=== PATIENT | male | born 1950 | race Caucasian/White ===

== ENCOUNTER 2017-12-01 20:03 | Observation (INO) | payer MEDICARE ==
[2017-12-01 20:35] LABS: #Eosinphils 0.4 thou/uL (0.0-0.7); #Lymphocytes 1.3 thou/uL (1.20-3.40); #Monocytes 0.5 thou/uL (0.11-0.59); #Neutrophils 5.1 thou/uL (1.40-6.50); %Basophils 0.5 % (0.0-1.0); %Eosinophils 5.2 % (0.0-10.0); %Lymphocytes 17.5 % (21.0-51.0); %Monocytes 6.5 % (0.0-10.0); %Neutrophils 70.3 % (42.0-75.0); Hemoglobin 17.1 g/dL (14.0-18.0); Mean Corpuscular HGB CONC 35.1 g/dL (32.0-36.0); Mean Corpuscular Hemoglobin 31.8 pg (27.0-31.0); Mean Corpuscular Volume 90.7 fL (78.0-98.0); Mean Platelet Volume 8.8 fL (7.4-10.4); Platelet Count 201 thou/uL (130-400); RBC Distribution Width 14.1 % (11.5-14.5); Red Blood Cell (RBC) Count 5.37 mill/uL (4.70-6.10); White Blood Cell (WBC) Count 7.3 thou/uL (4.8-10.8)
--- NOTE | 2017-12-01 20:42 | RAD ---
CHEST TWO VIEWS: 12/01/17 HISTORY: Chest pain. FINDINGS: Cardiac silhouette and pulmonary vasculature are unremarkable. Mediastinum is midline. No confluent a ir space consolidation, pneumothorax or pleural fluid. IMPRESSION: No active cardiopulmonary abnormalities are demonstrated. POS: [facility]
[2017-12-01 20:56] LABS: ALT (SGPT) 24 U/L (8-55); AST (SGOT) 17 U/L (5-34); Albumin 4.3 g/dL (3.4-4.8); Alkaline Phosphatase 66 U/L (40-150); Anion Gap 14 mmol/L (10-20); BUN (Urea Nitrogen) 19 mg/dL (8.4-25.7); Bilirubin, Total 0.8 mg/dL (0.2-1.2); CK (CPK) 63 U/L (30-200); Calc. Creatinine Clearance 0 mL/min (70-130); Calcium 9.8 mg/dL (7.8-10.44); Carbon Dioxide 22 mmol/L (23-31); Chloride 105 mmol/L (98-107); Estimated GFR-MDRD 69; Globulin 2.9 g/dL (2.4-3.5); Glucose 132 mg/dL (80-115); Lipase 39 U/L (8-78); Potassium 3.9 mmol/L (3.5-5.1); Protein, Total 7.2 g/dL (5.8-8.1); Sodium 137 mmol/L (136-145)
[2017-12-01 20:59] LABS: CKMB 1.4 ng/mL (0-6.6); Troponin I Less than 0.010 ng/mL (< 0.028)
[2017-12-01] MEDS ORDERED: Nitroglycerin 2% Ointment 1 INCH/1 GM Packet ONE (21:30)
[2017-12-01] MEDS ORDERED: Ondansetron ODT 4 MG TAB PO PRN (22:37)
[2017-12-01] MEDS ORDERED: Bisacodyl 5 MG TAB PO PRN (22:37)
[2017-12-01] MEDS ORDERED: Acetaminophen 325 MG TAB PO PRN (22:37)
[2017-12-01] MEDS ORDERED: Senokot 8.6 MG TAB PO PRN (22:37)
[2017-12-01] MEDS ORDERED: Enoxaparin Sodium 40 MG/0.4 ML SYRINGE SC SCH (22:45)
[2017-12-02 00:36] LABS: Troponin I Less than 0.010 ng/mL (< 0.028)
[2017-12-02 01:14] VITALS: BMI 31.1
[2017-12-02] MEDS ORDERED: ALPRAZolam 0.25 MG TAB PO SCH (02:15)
[2017-12-02 02:21] LABS: #Eosinphils 0.3 thou/uL (0.0-0.7); #Lymphocytes 1.6 thou/uL (1.20-3.40); #Monocytes 0.6 thou/uL (0.11-0.59); #Neutrophils 4.4 thou/uL (1.40-6.50); %Basophils 0.6 % (0.0-1.0); %Eosinophils 4.4 % (0.0-10.0); %Lymphocytes 22.9 % (21.0-51.0); %Monocytes 8.2 % (0.0-10.0); Mean Corpuscular HGB CONC 34.9 g/dL (32.0-36.0); Mean Corpuscular Hemoglobin 31.6 pg (27.0-31.0); Mean Corpuscular Volume 90.5 fL (78.0-98.0); Mean Platelet Volume 8.9 fL (7.4-10.4); Platelet Count 175 thou/uL (130-400); RBC Distribution Width 14.2 % (11.5-14.5); Red Blood Cell (RBC) Count 5.06 mill/uL (4.70-6.10); White Blood Cell (WBC) Count 6.9 thou/uL (4.8-10.8)
[2017-12-02 02:44] LABS: Troponin I Less than 0.010 ng/mL (< 0.028)
[2017-12-02 04:00] LABS: Anion Gap 14 mmol/L (10-20); BUN (Urea Nitrogen) 22 mg/dL (8.4-25.7); Calc. Creatinine Clearance 95 mL/min (70-130); Calcium 9.5 mg/dL (7.8-10.44); Carbon Dioxide 23 mmol/L (23-31); Chloride 105 mmol/L (98-107); Estimated GFR-MDRD 80; Glucose 105 mg/dL (80-115); Potassium 4.1 mmol/L (3.5-5.1); Sodium 138 mmol/L (136-145)
--- NOTE | 2017-12-02 07:20 | HP ---
CHIEF COMPLAINT: Chest pain. HISTORY OF PRESENT ILLNESS: This is a 67-year-old white male with past medical history significant f or TX status post stents in 2013, presenting with a chief complaint of chest pain. Per the patient, chest pain started on the morning of admission. The patient states that the chest pain came on as in digestion and that is what he thought it was. It was located in the epigastric region and it felt li ke chest tightness and it really made him very uncomfortable; therefore it prompted the patient to co me to the emergency room. Upon further questioning, the patient states that he has had an emotional event and that his mother on Monday and since then he has been very worried and especially with the coming up tomorrow, which is 12/02/2017, patient has a lot of pressure and he is very anx ious, so he really thinks that all of these events is what is causing his chest discomfort and the pa yelena also states that he has extensive history of GERD, which he takes medications for. The patient states that 6 months ago, he had a nuclear stress test and he also had an echo done by Dr. Garcia . Patient also saw Dr. Garcia a week ago and patient was fine. The patient did not have any prob lems then. REVIEW OF SYSTEMS: At this point, all systems were reviewed and are negative. PAST MEDICAL HISTORY: Significant for GERD, hypertension, TX in 2013, status post stent. PAST SURGICAL HISTORY: Cardiac stent, hernia, Achilles tendon surgery, prostatectomy. SOCIAL HISTORY: Former tobacco smoker. The patient quit less than 10 years ago. Patient lives at [facility] with spouse. The patient denies any alcohol use or illicit drug use. FAMILY HISTORY: Significant for hypertension. ALLERGIES: Patient has allergy to SULFA. MEDICATIONS: The patient takes lisinopril 2.5 mg, Clopidogrel 75 mg, omeprazole 40 mg, carvedilol 3. 125 mg, simvastatin 40 mg, Pepcid 20 mg, aspirin 81 mg, Ginkgo Biloba 125 mg. PHYSICAL EXAMINATION: VITAL SIGNS: Blood pressure is 153/95, pulse 81, respiratory rate of 18, temperature 98.8, O2 sat 95 %. GENERAL APPEARANCE: Basically, the patient appears his stated age. The patient is sitting in bed, h aving a full conversation with me, he does not appear to be in acute distress. The patient seems maryam y worried. Patient states that he wants to be discharged in the morning, so that he can go to his mo ther's . HEENT: Normocephalic, atraumatic. Pupils are equally round and reactive to light. Extraocular move ments are intact. No scleral icterus. NECK: Supple. No JVDs. No tracheal deviations. LUNGS: Clear to auscultation bilaterally. No wheezing, no rales, no rhonchi. CARDIOVASCULAR: Positive S1, S2, regular rate and rhythm. No murmurs, no gallops or rubs appreciate d. ABDOMEN: Soft, nontender, nondistended. No pulsatile masses. EXTREMITIES: Upper extremity, 5/5 upper extremity strength, 5/5 lower extremity strength. Pulses ar e equal and bounding bilaterally. NEUROLOGIC: No neurologic deficits noted. SKIN: Warm, dry, and intact. PSYCHIATRIC: Normal affect. ED COURSE: The patient was given nitro and aspirin. X-RAY FINDINGS: Normal x-ray. LABORATORY FINDINGS: Pertinent positives and negatives. WBC 7.3, hemoglobin 17.1, hematocrit 48.7, platelets 201 and troponin is less than 0.010, CK-MB 1.4, lipase 39. ASSESSMENT AND PLAN: This is a 67-year-old male with a past medical history significant for myocardi al infarction in 2013, status post stent. The patient states that he still have 80% stenosis, which he has been told about. Now, the patient is being admitted for: 1. Chest pain to rule out acute coronary syndrome. Patient's chest pain is currently gastroesophage al reflux disease like in nature. The patient is being given Pepcid at this time. We also think nat t due to patient's recent events, the patient is stressed and anxious and this can be contributing to patient's chest discomfort. At this point, since the patient had a recent echo and recent stress te st, we are going to basically observe the patient and follow up the troponins. We will consult the c ardiologist television news reporter to examine the patient briefly and possibly discharge the patient in the a.m. We will give the patient low dose of Xanax just to calm the patient down since patient is very, very an xious. 2. History of myocardial infarction, status post stents. At this point, the patient is stable. Out patient workup in the past couple of months has been stable. We will monitor the patient on telemetr y. Possibly discharge the patient in the a.m. 3. Hypertension. Continue patient on home medications. 4. History of gastroesophageal reflux disease. The patient is currently on Pepcid. 5. Deep venous thrombosis and gastrointestinal prophylaxis.
[2017-12-02 07:58] VITALS: BP 152/78; TEMP 98.3
[2017-12-02] MEDS ORDERED: Famotidine 20 MG TAB PO SCH (09:00)
--- NOTE | 2017-12-02 17:08 | DIS ---
DATE OF ADMISSION: 12/01/2017 DATE OF DISCHARGE: 12/02/2017 DISCHARGE DIAGNOSES: 1. Chest pain. 2. History of coronary artery disease. 3. History of myocardial infarction. 4. Hypertension. 5. Gastroesophageal reflux disease. HISTORY: This patient is a 67-year-old male with a history of known coronary artery disease with aldo or MIs. He also has a standing diagnosis of reflux. Patient had a negative stress test and echocard iogram that was essentially unremarkable 6 months prior to presentation. He had also seen his cardio logist one week prior and was felt to be in reasonably good health. Unfortunately, this patient's mo ther had and her was pending on the day of his discharge. The patient reported t hat he had some symptoms that he initially felt were reflux related, primarily manifested as some dis comfort in his epigastrium and chest area. He felt, however, that it was important to get it checked out, so he presented via the emergency department. His initial troponins, EKG and exam were general ly unremarkable. HOSPITAL COURSE: The patient was placed in observation. He continued to have serial cardiac isoenzy mes which remained unremarkable. He had resolution of his symptoms. He had no ectopy on the monitor . Cardiology reviewed his outpatient workup and felt that no further workup or formal consultation w as indicated after our discussion. The patient was eager for discharge. His son encouraged him to c onsider something for anxiety, but he was reluctant and indicated he never really believed in using m edications for that sort of pain. Therefore, we went any further discussion about that. PHYSICAL EXAMINATION: VITAL SIGNS: On the day of discharge, temperature 98.3, pulse 74, respirations 20, BP is 152/78, 96% on room air. GENERAL: He is awake, alert, oriented, pleasant, cooperative. HEART: Regular rate and rhythm without murmur. LUNGS: Clear bilaterally. ABDOMEN: Soft, nontender, nondistended. EXTREMITIES: Warm and dry. DISPOSITION: The patient is discharged to home. DISCHARGE INSTRUCTIONS: He is to continue his usual heart healthy diet and his activity level is as tolerated. DISCHARGE MEDICATIONS: He will continue with Prilosec, lisinopril, Coreg, Zocor, aspirin, famotidine , tamsulosin, ginkgo biloba, Plavix. FOLLOWUP: He is to follow up with Dr. Daniel Sahu in 14 days. He can return to the emergency depar tment should they have any problems prior to that time.
== END 2017-12-02 08:57 | disposition home or self-care (01) ==
LOC: ERS 20:03 → 2SW 12-02 00:51
PROVIDERS: ADMIT Internal Medicine; ATTEND Internal Medicine
DX: R07.9 Chest pain, unspecified (principal); K21.9 Gastro-esophageal reflux disease without esophagitis; I10 Essential (primary) hypertension; I25.10 Atherosclerotic heart disease of native coronary artery without angina pectoris; I25.2 Old myocardial infarction; Z88.2 Allergy status to sulfonamides; Z95.5 Presence of coronary angioplasty implant and graft; Z79.82 Long term (current) use of aspirin; Z79.02 Long term (current) use of antithrombotics/antiplatelets; Z79.899 Other long term (current) drug therapy
CPT/HCPCS: 71046; 80048; 80053; 82550; 82553; 83690; 84484 ×3; 85025 ×2; 93005; 94760; 96372; 99285; G0378 ×2; 36415; J1650

== ENCOUNTER 2018-03-02 14:17 | Outpatient (CLI) | payer MEDICARE ==
[2018-03-02 15:45] LABS: #Eosinphils 0.2 thou/uL (0.0-0.7); #Lymphocytes 1.7 thou/uL (1.20-3.40); #Monocytes 0.5 thou/uL (0.11-0.59); #Neutrophils 4.4 thou/uL (1.40-6.50); %Basophils 0.2 % (0.0-1.0); %Eosinophils 2.6 % (0.0-10.0); %Lymphocytes 24.7 % (21.0-51.0); %Monocytes 7.3 % (0.0-10.0); %Neutrophils 65.2 % (42.0-75.0); Hemoglobin 15.3 g/dL (14.0-18.0); Mean Corpuscular HGB CONC 33.5 g/dL (32.0-36.0); Mean Corpuscular Hemoglobin 29.7 pg (27.0-31.0); Mean Corpuscular Volume 88.5 fL (78.0-98.0); Mean Platelet Volume 9.2 fL (7.4-10.4); Platelet Count 178 thou/uL (130-400); RBC Distribution Width 14.6 % (11.5-14.5); Red Blood Cell (RBC) Count 5.17 mill/uL (4.70-6.10); White Blood Cell (WBC) Count 6.8 thou/uL (4.8-10.8)
[2018-03-02 15:49] LABS: Bilirubin Small (Negative); Blood, Urine Negative (Negative); Clarity CLEAR (Clear); Glucose, Urine (Dipstick) Negative (Negative); Leukocyte Negative (Negative); Nitrite Negative (Negative); Protein, Urine (Dipstick) Negative (Neg-Trace); Specific Gravity, Urine 1.034 (1.002-1.036); pH, Urine 5.5 (5.0-9.0)
[2018-03-02 15:51] LABS: PTT 31.7 SEC (22.9-36.1); Prothrombin Time 12.8 SEC (12.0-14.7)
[2018-03-02 15:56] LABS: Bacteria/HPF None Seen HPF (None Seen); Hyaline Casts/LPF 0-3 HYALINE CAST LPF (0-3 Hyaline); Pathc Cast-AUWi Flag 0.14 (0-2.49); Squamous Epithelial None Seen HPF (0-3); WBC/HPF 0-3 HPF (0-3)
[2018-03-02 16:06] LABS: Anion Gap 12 mmol/L (10-20); BUN (Urea Nitrogen) 19 mg/dL (8.4-25.7); Calc. Creatinine Clearance 0 mL/min (70-130); Calcium 9.6 mg/dL (7.8-10.44); Carbon Dioxide 23 mmol/L (23-31); Chloride 106 mmol/L (98-107); Estimated GFR-MDRD 70; Glucose 99 mg/dL (80-115); Potassium 4.2 mmol/L (3.5-5.1); Sodium 137 mmol/L (136-145)
--- NOTE | 2018-03-02 16:11 | RAD ---
CHEST 2 VIEWS: Date: 03/02/18 COMPARISON: 12/01/17. HISTORY: Preoperative exam. FINDINGS: Normal cardiac silhouette. Pulmonary vessels and hilum are normal. No mass. No consolidation. No pneu mothorax or acute osseous abnormalities. IMPRESSION: No acute cardiopulmonary process. POS: [facility]
== END 2018-03-02 14:18 | disposition home or self-care (01) ==
LOC: LABBT 14:17
PROVIDERS: ATTEND Orthopaedic Surgery
DX: Z01.818 Encounter for other preprocedural examination (principal); M16.11 Unilateral primary osteoarthritis, right hip
CPT/HCPCS: 71046; 80048; 81001; 85025; 85610; 85730; 86850; 86900; 86901; 87081; 93005; 93010

== ENCOUNTER 2018-03-02 15:00 | Inpatient (IN) | payer MEDICARE ==
[2018-03-02 14:26] VITALS: BMI 29.7
[2018-03-06] MEDS ORDERED: CEFAZOLIN 2 GM/50 ML BAG ONE (10:05)
[2018-03-06] MEDS ORDERED: Tranexamic Acid 1,000 MG/10 ML VIAL ONE (10:05)
[2018-03-06] MEDS ORDERED: Sodium Chloride 0.9% 100 ML ONE (10:05)
[2018-03-06] MEDS ORDERED: Vancomycin HCl 1.5 GM in Sodium Chloride 0.9% 250 ML 300 ML IVPB SCH (10:15)
[2018-03-06] MEDS ORDERED: Midazolam HCl 2 mg/2 ml Vial ONE ×2 (10:50→10:51)
[2018-03-06] MEDS ORDERED: Fentanyl 100 MCG/2 ML VIAL ONE ×6 (10:50→13:30)
[2018-03-06] MEDS ORDERED: diphenhydrAMINE 25 MG CAP PO PRN ×2 (10:53→12:00)
[2018-03-06] MEDS ORDERED: Zolpidem Tartrate 5 MG TAB PO PRN ×2 (10:53→12:00)
[2018-03-06] MEDS ORDERED: traMADol HCl 50 MG TAB PO PRN ×2 (10:53→12:00)
[2018-03-06] MEDS ORDERED: Fentanyl 100 MCG/2 ML VIAL SLOW IVP PRN ×2 (10:53)
[2018-03-06] MEDS ORDERED: Promethazine HCl 25 MG/ML VIAL IM PRN ×3 (10:53→13:45)
[2018-03-06] MEDS ORDERED: HYDROcodone/Acetaminophen 10/325 mg Tablet PO PRN ×2 (10:53)
[2018-03-06] MEDS ORDERED: Ondansetron PF 4 MG/2 ML Vial IVP PRN ×2 (10:53→12:00)
[2018-03-06] MEDS ORDERED: Acetaminophen 325 MG TAB PO PRN (10:53)
[2018-03-06] MEDS ORDERED: CEFAZOLIN/Water 2 GM/20 ML SYRINGE SLOW IVP SCH (11:00)
[2018-03-06] MEDS ORDERED: Bupivacaine/Epinephrine 0.25% 30 ML VIAL ONE (11:17)
[2018-03-06] MEDS ORDERED: diphenhydrAMINE 50 MG/ML VIAL IVP PRN (12:00)
[2018-03-06] MEDS ORDERED: Hydrocerin (Eucerin) Cream 120 gm Jar TOP PRN (12:00)
[2018-03-06] MEDS ORDERED: HYDROcodone/Acetaminophen 5/325 mg Tablet PO PRN (12:00)
[2018-03-06] MEDS ORDERED: Naloxone HCl 0.4 mg/ml Vial IVP PRN (12:00)
[2018-03-06] MEDS ORDERED: Ketorolac Tromethamine 30 MG/ML VIAL IVP SCH ×2 (12:00→14:00)
[2018-03-06] MEDS ORDERED: Bupivacaine 0.25% 10 ML VIAL EPIDURAL PRN (12:00)
[2018-03-06] MEDS ORDERED: Naloxone HCl 0.4 mg/ml Vial IV PRN (12:00)
[2018-03-06] MEDS ORDERED: Fentanyl/Bupivacaine 100 ML EPIDURAL SCH (12:00)
[2018-03-06] MEDS ORDERED: Promethazine HCl 25 MG SUPP PR PRN (12:00)
[2018-03-06] MEDS ORDERED: diphenhydrAMINE 50 MG/ML VIAL IM PRN (12:00)
[2018-03-06] MEDS ORDERED: Bupivacaine 0.5% 10 ML VIAL ONE (12:52)
[2018-03-06] MEDS ORDERED: Ondansetron HCl/PF 4 MG/2 ML Vial IVP PRN (13:45)
[2018-03-06] MEDS ORDERED: Promethazine HCl 25 MG/ML VIAL SLOW IVP PRN (13:45)
--- NOTE | 2018-03-06 14:08 | RAD ---
RADIOGRAPH RIGHT HIP 2 VIEWS: Date: 03/06/18 HISTORY: 67-year-old male with right hip pain, status post surgery. COMPARISON: None. FINDINGS: Metallic acetabular cup in place, articulating with femoral head and neck prosthesis component with s tem that reaches junction between proximal and middle thirds of femoral diaphysis. IMPRESSION: Status post total right hip replacement arthroplasty. POS: [facility]
[2018-03-06] MEDS ORDERED: Ketorolac Tromethamine 30 MG/ML VIAL ONE (14:21)
[2018-03-06] MEDS ORDERED: Lidocaine 1% PF 5 ML VIAL ONE (16:55)
[2018-03-06] MEDS ORDERED: Glycopyrrolate 0.2 MG/ML 5 ML SYRINGE ONE (16:55)
[2018-03-06] MEDS ORDERED: Rocuronium Bromide 10 MG/ML (10ML VIAL) ONE (16:55)
[2018-03-06] MEDS ORDERED: PROPOFOL 200 MG/20 ML VIAL ONE (16:55)
[2018-03-06] MEDS: Sodium Chloride 0.9% 1,000 ML IV SCH ×2 (17:27→17:52)
[2018-03-06] MEDS: CEFAZOLIN 2 GM/50 ML-DEXTROSE 2 GM in Premix Bag 1 BAG IVPB SCH (17:51)
[2018-03-06] MEDS: Aspirin 81 mg Enteric Coated Tablet PO SCH (19:30)
[2018-03-06] MEDS: Famotidine 20 MG TAB PO SCH (19:31)
[2018-03-06] MEDS: Carvedilol 3.125 MG TAB PO SCH (19:31)
[2018-03-06] MEDS: Ferrous Gluconate 324 MG TAB PO SCH (19:31)
[2018-03-06] MEDS: Senokot S 8.6-50 MG TAB PO SCH (19:31)
[2018-03-06] MEDS: Atorvastatin Calcium 20 MG TAB PO SCH (19:31)
[2018-03-06] MEDS: Ketorolac Tromethamine 30 MG/ML VIAL IVP SCH (19:32)
--- NOTE | 2018-03-06 20:50 | OP ---
DATE OF PROCEDURE: 03/06/2018 PREOPERATIVE DIAGNOSIS: Degenerative joint disease, right hip. POSTOPERATIVE DIAGNOSIS: Degenerative joint disease, right hip. PROCEDURE PERFORMED: Right total hip arthroplasty using a Golden Accolade size 2.5 stem with a 54 mm Tritanium cup, +2.5 ceramic head. COUNTING MACHINE OPERATOR: Tobi. BLOOD LOSS: 200. SPECIMENS: None. DRAINS: None. COMPLICATIONS: None. PROCEDURE IN DETAIL: After informed consent was obtained in the preoperative holding area, the patient was taken to the operative suite where general anesthesia was induced. The patient was then positioned in the lateral decubitus position. The hip was then prepped and draped in usual sterile fashion. The patient received preoperative antibiotics. Prior to incision, time-out was called and all members of the surgical team agreed upon site, surgeon, and patient. After this, a longitudinal incision was made directly over the trochanter, noted by palpation extending 2 fingerbreadths above and below the trochanter. The deeper subcutaneous layer was undermined with Bovie electrocautery. The iliotibial band was encountered and incised sharply and the plane below this was developed bluntly. A Charnley retractor was placed to hold this opened. The lateral aspect of the trochanter and the abductor muscles were encountered and then reflected anteriorly off the trochanter using Bovie electrocautery. Once this was completed, the anterior capsule was then encountered and identified and copious capsulotomy was carried out, exposing the femoral neck and head. Dislocation maneuver was then performed and an in situ provisional neck cut was then made using the oscillating saw. Attention was then turned to acetabular preparation and sequential reaming was carried out up to the appropriate diameter. A trial was then malleted into place with good firm resistance and no pullout. The permanent acetabular shell was then malleted squarely into place, as was the appropriate liner. Once completed, the wound was copiously irrigated and attention was then turned to femoral preparation. Flexion and external rotation were performed of the exposed thigh and femoral elevators were then placed at the proximal aspect of the wound. Canal finder was used to establish the length of the canal and sequential reaming was carried out, followed by broaching. Once the appropriate stability was established with the trial broaches with flexion, extension and rotational stability, we did trial with neutral and 2 mm offset incremental necks. Once the appropriate size was decided upon, with good stability noted with flexion, extension, internal and external rotation and shuck being negative, we removed the femoral trial broach and malletted into place the permanent prosthesis with good firm fit, which was also stable to rotation. Again, the hip felt very stable to flexion, extension, internal and external rotation. Leg lengths appeared near anatomic clinically and we were quite happy with prosthesis placement. Copious irrigation was then carried out through the entirety of the wound. Primary closure of the abductors was accomplished with interrupted #2 Vicryl [id number] stitches and the IT band was then closed with interrupted #2 Vicryl, oversewn with a #2 running barbed Quill stitch. Subcutaneous fascia was closed with running barbed Quill stitch and a subcuticular Monocryl barbed Quill stitch was used for skin closure and augmented with skin cement. A sterile dressing was applied. The procedure was terminated without any complication. All counts were correct. The patient was awakened in the operative suite and taken to the recovery room in stable condition. Job ID: [id number]
[2018-03-06] MEDS: Fentanyl/Bupivacaine 100 ML EPIDURAL SCH (21:23)
[2018-03-07] MEDS: CEFAZOLIN 2 GM/50 ML-DEXTROSE 2 GM in Premix Bag 1 BAG IVPB SCH (01:57)
[2018-03-07] MEDS: Ketorolac Tromethamine 30 MG/ML VIAL IVP SCH ×4 (01:57→20:05)
[2018-03-07] MEDS: HYDROcodone/Acetaminophen 5/325 mg Tablet PO PRN ×2 (04:24→09:58)
[2018-03-07] MEDS: traMADol HCl 50 MG TAB PO PRN ×2 (05:53→12:16)
[2018-03-07] MEDS: Sodium Chloride 0.9% 1,000 ML IV SCH ×2 (05:55→07:29)
[2018-03-07 06:29] LABS: Hemoglobin 13.2 g/dL (14.0-18.0); Mean Corpuscular HGB CONC 33.6 g/dL (32.0-36.0); Mean Corpuscular Hemoglobin 30.1 pg (27.0-31.0); Mean Corpuscular Volume 89.5 fL (78.0-98.0); Mean Platelet Volume 8.7 fL (7.4-10.4); Platelet Count 140 thou/uL (130-400); RBC Distribution Width 14.5 % (11.5-14.5); Red Blood Cell (RBC) Count 4.38 mill/uL (4.70-6.10); White Blood Cell (WBC) Count 7.1 thou/uL (4.8-10.8)
[2018-03-07] MEDS: Lisinopril 2.5 MG TAB PO SCH (07:53)
[2018-03-07] MEDS: Multivitamin W/ Minerals 1 TAB PO SCH (07:53)
[2018-03-07] MEDS: Ferrous Gluconate 324 MG TAB PO SCH ×2 (07:54→20:07)
[2018-03-07] MEDS: Senokot S 8.6-50 MG TAB PO SCH ×2 (07:55→20:06)
[2018-03-07] MEDS: Aspirin 81 mg Enteric Coated Tablet PO SCH ×2 (07:55→20:06)
[2018-03-07] MEDS: Carvedilol 3.125 MG TAB PO SCH ×2 (07:56→20:07)
[2018-03-07] MEDS: Fentanyl/Bupivacaine 100 ML EPIDURAL SCH ×2 (08:56→20:22)
[2018-03-07] MEDS: Atorvastatin Calcium 20 MG TAB PO SCH (20:07)
[2018-03-07] MEDS: Famotidine 20 MG TAB PO SCH (20:07)
--- NOTE | 2018-03-07 23:29 | PRG ---
DATE OF SERVICE: 03/07/2018 PRIMARY CARE PHYSICIAN: Dr. Sahu. SUBJECTIVE: The patient is a 67-year-old male who underwent right total hip arthroplasty. Hospitalist Team was consulted for medical management. The patient denies any chest pain, shortness of breath, palpitations, nausea, vomiting, diarrhea, fever, or chills. He ambulated today with Physical Therapy. He denies any leg swelling or focal deficit. PHYSICAL EXAMINATION: VITAL SIGNS: Temperature 99.0, pulse rate of 83, respirations of 16, O2 saturation 94% on room air, blood pressure of 111/71. GENERAL: A 67-year-old man, in no apparent distress. LUNGS: Clear to auscultation bilaterally. HEART: S1 and S2 are present. Regular rate and rhythm. No rubs or gallops appreciated. ABDOMEN: Soft. Bowel sounds present. EXTREMITIES: No edema or calf tenderness. NEUROLOGIC: Grossly nonfocal. Moves all 4 extremities. PSYCHIATRY: Alert, awake, and oriented x3. LAB FINDINGS: WBC 7.1 with hemoglobin 13.2, hematocrit 39.3, platelets of 140. Recent BUN was 19, creatinine 1.05. X-ray of the hip post surgery was within normal limits. Chest x-ray by my review from last week was negative for acute findings. IMPRESSION: 1. Status post right hip arthroplasty. 2. Coronary artery disease, status post myocardial infarction in the past. He is currently on aspirin. Plavix is on hold. We will continue carvedilol, ERVIN inhibitor with statins. 3. Gastroesophageal reflux disease, we will continue proton pump inhibitors. 4. Hypertension, plan as discussed above. 5. Chronic kidney disease stage 2. 6. Hyperlipidemia, we will continue statins. 7. Former smoker. Plan of care was discussed with the patient in detail. He stated understanding. Job ID: [id number]
[2018-03-08] MEDS: Ketorolac Tromethamine 30 MG/ML VIAL IVP SCH ×2 (02:15→08:14)
[2018-03-08] MEDS: Sodium Chloride 0.9% 1,000 ML IV SCH ×2 (02:16→16:19)
[2018-03-08 06:42] LABS: #Eosinphils 0.2 thou/uL (0.0-0.7); #Lymphocytes 1.1 thou/uL (1.20-3.40); #Monocytes 0.8 thou/uL (0.11-0.59); #Neutrophils 6.3 thou/uL (1.40-6.50); %Basophils 0.1 % (0.0-1.0); %Eosinophils 2.4 % (0.0-10.0); %Lymphocytes 13.3 % (21.0-51.0); %Monocytes 9.6 % (0.0-10.0); %Neutrophils 74.6 % (42.0-75.0); Hemoglobin 14.5 g/dL (14.0-18.0); Mean Corpuscular HGB CONC 34.5 g/dL (32.0-36.0); Mean Corpuscular Hemoglobin 30.9 pg (27.0-31.0); Mean Corpuscular Volume 89.4 fL (78.0-98.0); Mean Platelet Volume 8.5 fL (7.4-10.4); Platelet Count 185 thou/uL (130-400); White Blood Cell (WBC) Count 8.5 thou/uL (4.8-10.8)
[2018-03-08 07:05] LABS: Anion Gap 12 mmol/L (10-20); BUN (Urea Nitrogen) 15 mg/dL (8.4-25.7); Calc. Creatinine Clearance 89 mL/min (70-130); Calcium 9.5 mg/dL (7.8-10.44); Carbon Dioxide 24 mmol/L (23-31); Chloride 100 mmol/L (98-107); Estimated GFR-MDRD 79; Glucose 104 mg/dL (80-115); Magnesium 2.2 mg/dL (1.6-2.6); Potassium 4.3 mmol/L (3.5-5.1); Sodium 132 mmol/L (136-145)
[2018-03-08] MEDS: Fentanyl/Bupivacaine 100 ML EPIDURAL SCH (07:34)
[2018-03-08] MEDS: Carvedilol 3.125 MG TAB PO SCH (08:20)
[2018-03-08] MEDS: Ferrous Gluconate 324 MG TAB PO SCH (08:20)
[2018-03-08] MEDS: Aspirin 81 mg Enteric Coated Tablet PO SCH (08:20)
[2018-03-08] MEDS: Multivitamin W/ Minerals 1 TAB PO SCH (08:20)
[2018-03-08] MEDS: Senokot S 8.6-50 MG TAB PO SCH (08:21)
[2018-03-08] MEDS: Lisinopril 2.5 MG TAB PO SCH (08:21)
[2018-03-08 12:31] VITALS: BP 125/82; TEMP 99.6
[2018-03-08] MEDS: HYDROcodone/Acetaminophen 5/325 mg Tablet PO PRN (15:33)
== END 2018-03-08 16:00 | disposition home or self-care (01) | DRG 470 ==
LOC: SJJU 03-06 08:13
PROVIDERS: ADMIT Orthopaedic Surgery; ATTEND Orthopaedic Surgery
PROC: 0SR902A Replacement of Right Hip Joint with Metal on Polyethylene Synthetic Substitute, Uncemented, Open Approach (ICD-10-PCS; principal; 2018-03-06)
DX: M16.11 Unilateral primary osteoarthritis, right hip (principal); K21.9 Gastro-esophageal reflux disease without esophagitis; I25.10 Atherosclerotic heart disease of native coronary artery without angina pectoris; N18.2 Chronic kidney disease, stage 2 (mild); E78.5 Hyperlipidemia, unspecified; Z79.82 Long term (current) use of aspirin; I25.2 Old myocardial infarction; Z87.891 Personal history of nicotine dependence; Z85.46 Personal history of malignant neoplasm of prostate; Z95.5 Presence of coronary angioplasty implant and graft
CPT/HCPCS: 36415; 80048; 83735; 85025; 85027; G8978-GP-CK; G8979-GP-CI; G8987-GO-CJ; G8988-GO-CI; J0131; J1200; J1885; J2001; J2250; J2405; J2704; J3010; J3370; J3490; J7050

== ENCOUNTER 2022-05-13 12:56 | Outpatient (CLI) | payer MEDICARE ==
[2022-05-13 14:04] LABS: #Basophils 0.1 10x3/uL (0.0-0.2); #Eosinphils 0.2 10x3/uL (0.0-0.5); #Monocytes 0.8 10x3/uL (0.0-1.1); #Neutrophils 4.3 10x3/uL (1.5-8.4); %Basophils 0.9 % (0.0-2.0); %Eosinophils 2.3 % (0.0-6.0); %Lymphocytes 22.3 % (18.0-47.0); %Monocytes 11.1 % (0.0-10.0); %Neutrophils 62.7 % (40.0-75.0); Hemoglobin 15.6 g/dL (13.5-17.5); Mean Corpuscular HGB CONC 32.9 g/dL (32.0-36.0); Mean Corpuscular Hemoglobin 28.1 pg (27.0-33.0); Mean Corpuscular Volume 85.3 fl (81.2-95.1); Mean Platelet Volume 11.4 fl (7.4-10.4); Platelet Count 217 10x3/uL (150-450); RBC Distribution Width 14.6 % (11.5-14.5); Red Blood Cell (RBC) Count 5.56 10x6/uL (4.32-5.72); White Blood Cell (WBC) Count 6.9 10x3/uL (3.5-10.5)
[2022-05-13 14:22] LABS: ALT (SGPT) 22 U/L (8-55); AST (SGOT) 20 U/L (5-34); Albumin 4.4 g/dL (3.4-4.8); Alkaline Phosphatase 53 U/L (40-110); Anion Gap 15 mmol/L (10-20); BUN (Urea Nitrogen) 17 mg/dL (8.4-25.7); Calc. Creatinine Clearance 0 mL/min (70-130); Calcium 9.8 mg/dL (7.8-10.44); Carbon Dioxide 24 mmol/L (23-31); Chloride 105 mmol/L (98-107); Estimated GFR 74; Globulin 2.5 g/dL (2.4-3.5); Glucose 96 mg/dL (83-110); Potassium 4.5 mmol/L (3.5-5.1); Protein, Total 6.9 g/dL (5.8-8.1); Sodium 139 mmol/L (136-145)
== END 2022-05-13 12:57 | disposition home or self-care (01) ==
LOC: LABBT 12:56
PROVIDERS: ATTEND Internal Medicine Cardiovascular Disease
DX: Z01.812 Encounter for preprocedural laboratory examination (principal); R06.00 Dyspnea, unspecified
CPT/HCPCS: 80053; 85025

== ENCOUNTER → 2022-05-17 | Day surgery (SDC) | payer MEDICARE ==
[2022-05-16 11:26] VITALS: BMI 28.4
[~2022-05-17] MED LIST: Adenosine 6 MG/2 ML VIAL ONE; FENTANYL 50 MCG/ML 1 ML VIAL ONE; Heparin 10,000 UNITS/ 10 ML VIAL ONE; Lidocaine 1% PF 5 ML VIAL ONE; Midazolam HCl 2 mg/2 ml Vial ONE; Nitroglycerin 100MG/250ML BOT 250 ML ONE; Verapamil 5 MG/2 ML VIAL ONE
== END | disposition home or self-care (01) ==
LOC: CCL 05:46
PROVIDERS: ATTEND Internal Medicine Cardiovascular Disease
PROC: 4A023N7 Measurement of Cardiac Sampling and Pressure, Left Heart, Percutaneous Approach (ICD-10-PCS; principal; 2022-05-17)
PROC: B2111ZZ Fluoroscopy of Multiple Coronary Arteries using Low Osmolar Contrast (ICD-10-PCS; 2022-05-17)
DX: I25.119 Atherosclerotic heart disease of native coronary artery with unspecified angina pectoris (principal); Q24.5 Malformation of coronary vessels; I25.2 Old myocardial infarction; I10 Essential (primary) hypertension; K21.9 Gastro-esophageal reflux disease without esophagitis; E78.2 Mixed hyperlipidemia; Z85.46 Personal history of malignant neoplasm of prostate; Z87.891 Personal history of nicotine dependence; Z79.82 Long term (current) use of aspirin; Z79.899 Other long term (current) drug therapy; Z88.2 Allergy status to sulfonamides; Z95.5 Presence of coronary angioplasty implant and graft
CPT/HCPCS: 93458; 99152; 99153; C1769; C1894; J0153; J1644; J2250; J3010

== ENCOUNTER 2022-06-20 09:00 | Inpatient (IN) | payer MEDICARE ==
[2022-06-20 10:01] LABS: Hemoglobin 14.8 g/dL (13.5-17.5); Mean Corpuscular HGB CONC 33.1 g/dL (32.0-36.0); Mean Corpuscular Hemoglobin 27.8 pg (27.0-33.0); Mean Platelet Volume 11.3 fl (7.4-10.4); Platelet Count 208 10x3/uL (150-450); RBC Distribution Width 14.6 % (11.5-14.5); Red Blood Cell (RBC) Count 5.32 10x6/uL (4.32-5.72); White Blood Cell (WBC) Count 6.4 10x3/uL (3.5-10.5)
[2022-06-20 10:27] LABS: Anion Gap 15 mmol/L (10-20); BUN (Urea Nitrogen) 12 mg/dL (8.4-25.7); Calc. Creatinine Clearance 0 mL/min (70-130); Calcium 9.6 mg/dL (7.8-10.44); Carbon Dioxide 24 mmol/L (23-31); Chloride 105 mmol/L (98-107); Estimated GFR 88; Glucose 109 mg/dL (83-110); Potassium 4.6 mmol/L (3.5-5.1); Sodium 139 mmol/L (136-145)
[2022-06-21] MEDS ORDERED: Bupivacaine HCl 0.5%/Epinephrine 1:200,000/PF 30 ml Vial ONE (06:34)
[2022-06-21] MEDS ORDERED: Dexamethasone 4 mg/ml Vial ONE (06:34)
[2022-06-21] MEDS ORDERED: PHENYLEPHRINE-NS 100 MCG/ML 10 ML SYRINGE ONE (06:34)
[2022-06-21] MEDS ORDERED: Albumin 5% 500 ML ONE (06:34)
[2022-06-21] MEDS ORDERED: Heparin 10,000 UNITS/1 ML VIAL 30,000 UNITS in Sodium Chloride 0.9% 1,000 ML FS SCH (06:45)
[2022-06-21] MEDS ORDERED: Fentanyl 250 MCG/5 ML VIAL ONE (06:46)
[2022-06-21] MEDS ORDERED: Midazolam HCl 5 mg/5 ml Vial ONE (06:46)
[2022-06-21] MEDS ORDERED: Lidocaine 1% MPF 2 ML VIAL ONE (07:03)
[2022-06-21] MEDS ORDERED: Sodium Chloride 0.9% 100 ML ONE (07:17)
[2022-06-21] MEDS ORDERED: ceFOXitin 1 GM VIAL ONE (07:17)
[2022-06-21] MEDS ORDERED: CEFAZOLIN 2 GM VIAL ONE (07:17)
[2022-06-21] MEDS ORDERED: Protamine Sulfate 250 MG/25 ML VIAL ONE (07:26)
[2022-06-21] MEDS ORDERED: Calcium Chloride 1 GM/10 ML Abboject SYRINGE ONE (07:26)
[2022-06-21] MEDS ORDERED: Heparin 5,000 UNITS/ML VIAL ONE (07:26)
[2022-06-21] MEDS ORDERED: Labetalol HCl 100 MG/20 ML VIAL ONE (07:26)
[2022-06-21] MEDS ORDERED: Vecuronium 10 MG VIAL ONE (07:26)
[2022-06-21] MEDS ORDERED: Magnesium 5 GM/10 ML VIAL ONE (07:26)
[2022-06-21] MEDS ORDERED: Thrombin 5000 UNITS/5 ML VIAL ONE (07:26)
[2022-06-21] MEDS ORDERED: Cardioplegic Soln 1,000 ML BAG ONE (07:26)
[2022-06-21] MEDS ORDERED: Heparin 30,000 units/30 ml VIAL ONE (07:26)
[2022-06-21] MEDS ORDERED: Aminocaproic Acid 5 GM/20 ML VIAL ONE (07:26)
[2022-06-21] MEDS ORDERED: Lidocaine 2% PF 100 mg/5 ml Syringe ONE (07:26)
[2022-06-21] MEDS ORDERED: Sodium Bicarb 50 MEQ/50 ML VIAL ONE (07:26)
[2022-06-21] MEDS ORDERED: Vancomycin 1 GM VIAL ONE (07:26)
[2022-06-21] MEDS ORDERED: Albumin 25% 25 GM/100 ML BOT ONE (07:26)
[2022-06-21] MEDS ORDERED: Rocuronium Bromide 10 MG/ML (10ML VIAL) ONE (07:26)
[2022-06-21] MEDS ORDERED: PROPOFOL 200 MG/20 ML VIAL ONE (07:26)
[2022-06-21] MEDS ORDERED: Mannitol 12.5 GM/50 ML ONE (07:26)
[2022-06-21] MEDS ORDERED: Potassium Chloride 60 MEQ/30 ML VIAL ONE (07:26)
[2022-06-21] MEDS ORDERED: Papaverine 60 MG/2 ML VIAL ONE (07:26)
[2022-06-21] MEDS ORDERED: Insulin Regular 300 UNITS/3 ML VIAL ONE (09:35)
[2022-06-21] MEDS ORDERED: Hetastarch 6% 500 ML 500 ML IVPB PRN (10:32)
[2022-06-21] MEDS ORDERED: FENTANYL 50 MCG/ML 1 ML VIAL SLOW IVP PRN (10:32)
[2022-06-21] MEDS ORDERED: Ipratropium/Albuterol 3 ML NEB NEB PRN (10:32)
[2022-06-21] MEDS ORDERED: Guaifenesin DM 100-10/5 ML UDCUP PO PRN (10:32)
[2022-06-21] MEDS ORDERED: hydrALAZINE 20 MG/ML VIAL SLOW IVP PRN (10:32)
[2022-06-21] MEDS ORDERED: traMADol HCl 50 MG TAB PO PRN (10:32)
[2022-06-21] MEDS ORDERED: Bisacodyl 10 MG SUPP PR PRN (10:32)
[2022-06-21] MEDS ORDERED: Potassium Chloride 20 MEQ/100 ML PREMIX BAG IVPB PRN (10:32)
[2022-06-21] MEDS ORDERED: Bisacodyl 5 MG TAB PO PRN (10:32)
[2022-06-21] MEDS ORDERED: Morphine 2 MG/ML VIAL SLOW IVP PRN (10:32)
[2022-06-21] MEDS ORDERED: niCARdipine 25 MG in Sodium Chloride 0.9% 250 ML 250 ML IVPB PRN (10:32)
[2022-06-21] MEDS ORDERED: NOREPINEPHRINE 8 MG/250 ML-D5W 250 ML IVPB PRN (10:32)
[2022-06-21] MEDS ORDERED: Mag-Al 1200 mg/1200 mg/30 ML UDCUP PO PRN (10:32)
[2022-06-21] MEDS ORDERED: HUMULIN R 100 UNITS in Sodium Chloride 0.9% 100 ML IVPB SCH (10:45)
[2022-06-21] MEDS ORDERED: Dextrose 50% Abboject 50 ML SYRINGE SLOW IVP PRN (10:45)
[2022-06-21] MEDS ORDERED: Dextrose 5% in Water 1,000 ML IV PRN (10:45)
[2022-06-21 11:20] LABS: Actual Bicarbonate (HCO3a) 21.3 mEq/L (22-28); Base Excess (BEa) -3.8 mEq/L (-2.0 to +3.0); CO2 Tension 38.9 mmHg (35.0-45.0); Carboxyhemoglobin (COHb) 0.2 gm% (0.0-3.0); Hemoglobin (Hb) 11.8 g/dL (14.0-18.0); O2 Tension (PaO2), arterial 157.4 mmHg (> 70.0); Potassium - ABG Lab 4.43 mmol/L (3.70-5.30); pH, Arterial 7.36 (7.35-7.45)
[2022-06-21] MEDS: Ketorolac Tromethamine 30 MG/ML VIAL IVP SCH ×3 (11:23→23:09)
[2022-06-21 11:25] LABS: #Eosinphils 0.1 thou/uL (0.0-0.7); #Monocytes 0.6 thou/uL (0.11-0.59); #Neutrophils 9.9 thou/uL (1.40-6.50); %Basophils 0.1 % (0.0-1.0); %Eosinophils 0.6 % (0.0-10.0); %Lymphocytes 8.6 % (21.0-51.0); %Neutrophils 85.7 % (42.0-75.0); Hemoglobin 11.6 g/dL (14.0-18.0); Mean Corpuscular HGB CONC 33.5 g/dL (32.0-36.0); Mean Corpuscular Hemoglobin 29.5 pg (27.0-31.0); Mean Corpuscular Volume 87.9 fl (78.0-98.0); Platelet Count 137 10x3/uL (130-400); RBC Distribution Width 14.2 % (11.5-14.5); Red Blood Cell (RBC) Count 3.93 mill/uL (4.70-6.10); White Blood Cell (WBC) Count 11.6 10x3/uL (4.8-10.8)
[2022-06-21] MEDS: Potassium Chloride 20 MEQ in Lactated Ringer's 1,000 ML IV SCH (11:25)
[2022-06-21 11:27] LABS: Puncture Site Arterial Line
[2022-06-21] MEDS: Insulin Regular 300 UNITS/3 ML VIAL SC PRN ×4 (11:27→20:18)
[2022-06-21 11:28] LABS: ALV-art Gradient 221.775 mmHg (0-20)
[2022-06-21 11:34] LABS: INR-International Normal Ratio 1.3; Prothrombin Time 16.8 sec (12.0-14.7)
[2022-06-21 11:35] LABS: PTT 69.6 sec (22.9-36.1)
[2022-06-21 11:42] LABS: Anion Gap 10 mmol/L (10-20); BUN (Urea Nitrogen) 13 mg/dL (8.4-25.7); Calc. Creatinine Clearance 83 mL/min (70-130); Calcium 7.8 mg/dL (7.8-10.44); Carbon Dioxide 25 mmol/L (23-31); Chloride 111 mmol/L (98-107); Estimated GFR 90; Glucose 140 mg/dL (83-110); Potassium 4.8 mmol/L (3.5-5.1); Sodium 141 mmol/L (136-145)
[2022-06-21 11:52] VITALS: BMI 29.7
[2022-06-21] MEDS: Ondansetron PF 4 MG/2 ML Vial IVP PRN (12:33)
[2022-06-21 14:06] LABS: Actual Bicarbonate (HCO3a) 20.5 mEq/L (22-28); Base Excess (BEa) -4.1 mEq/L (-2.0 to +3.0); CO2 Tension 35.9 mmHg (35.0-45.0); Carboxyhemoglobin (COHb) 0.4 gm% (0.0-3.0); Hemoglobin (Hb) 12.1 g/dL (14.0-18.0); O2 Tension (PaO2), arterial 113.4 mmHg (> 70.0); Potassium - ABG Lab 4.28 mmol/L (3.70-5.30); pH, Arterial 7.37 (7.35-7.45)
[2022-06-21 14:13] LABS: ALV-art Gradient 126.925 mmHg (0-20); Puncture Site Arterial Line
[2022-06-21] MEDS: FENTANYL 50 MCG/ML 1 ML VIAL SLOW IVP PRN ×3 (14:33→23:10)
[2022-06-21] MEDS: CEFAZOLIN 2 GM in Sodium Chloride 0.9% 100 ML IVPB SCH ×2 (15:42→23:10)
[2022-06-21] MEDS: traMADol HCl 50 MG TAB PO PRN ×2 (15:59→21:58)
[2022-06-21 16:10] LABS: Hemoglobin 11.2 g/dL (14.0-18.0)
[2022-06-21 17:58] LABS: Potassium 4.4 mmol/L (3.5-5.1)
[2022-06-21] MEDS ORDERED: Famotidine/PF 20 mg/2ml Vial SLOW IVP SCH (21:00)
[2022-06-21] MEDS ORDERED: Atorvastatin Calcium 20 MG TAB PO SCH (21:00)
[2022-06-22 05:13] LABS: #Lymphocytes 0.7 thou/uL (1.20-3.40); #Monocytes 0.8 thou/uL (0.11-0.59); #Neutrophils 7.1 thou/uL (1.40-6.50); %Basophils 0.1 % (0.0-1.0); %Eosinophils 0.1 % (0.0-10.0); %Lymphocytes 7.6 % (21.0-51.0); %Monocytes 9.6 % (0.0-10.0); %Neutrophils 82.6 % (42.0-75.0); Hemoglobin 9.1 g/dL (14.0-18.0); Mean Corpuscular HGB CONC 33.6 g/dL (32.0-36.0); Mean Corpuscular Hemoglobin 29.9 pg (27.0-31.0); Mean Platelet Volume 9.2 fL (7.4-10.4); Platelet Count 123 10x3/uL (130-400); RBC Distribution Width 14.1 % (11.5-14.5); Red Blood Cell (RBC) Count 3.03 mill/uL (4.70-6.10); White Blood Cell (WBC) Count 8.6 10x3/uL (4.8-10.8)
[2022-06-22 05:38] LABS: Anion Gap 10 mmol/L (10-20); BUN (Urea Nitrogen) 13 mg/dL (8.4-25.7); Calc. Creatinine Clearance 99 mL/min (70-130); Calcium 8.2 mg/dL (7.8-10.44); Carbon Dioxide 25 mmol/L (23-31); Chloride 110 mmol/L (98-107); Estimated GFR 93; Glucose 121 mg/dL (83-110); Potassium 4.5 mmol/L (3.5-5.1); Sodium 140 mmol/L (136-145)
[2022-06-22] MEDS: Ketorolac Tromethamine 30 MG/ML VIAL IVP SCH ×4 (06:15→23:31)
[2022-06-22] MEDS: Potassium Chloride 20 MEQ in Lactated Ringer's 1,000 ML IV SCH (07:05)
[2022-06-22] MEDS: CEFAZOLIN 2 GM in Sodium Chloride 0.9% 100 ML IVPB SCH (07:05)
[2022-06-22] MEDS: Aspirin 325 MG TAB PO SCH (08:09)
[2022-06-22] MEDS: Magnesium 2 GM/50 ML(in water) 2 GM in Premix Bag 1 BAG IVPB SCH (08:09)
[2022-06-22] MEDS ORDERED: FLU VACC QS2022-23(65YR UP)/PF 240 MCG/0.7 ML SYRINGE IM ONE (09:00)
[2022-06-22] MEDS ORDERED: Insulin Glargine 30 UNITS/0.3 ML VIAL SC PRN (10:38)
[2022-06-22] MEDS: traMADol HCl 50 MG TAB PO PRN ×2 (10:51→17:02)
[2022-06-22] MEDS: Acetaminophen 325 MG TAB PO PRN (10:52)
[2022-06-22 15:04] LABS: Actual Bicarbonate (HCO3a) 26.7 mEq/L (22-28); Analyzer IN Cardio OR; Base Excess (BEa) 0.7 mEq/L (-2.0 to +3.0); CO2 Tension 49.5 mmHg (35.0-45.0); Calcium, Ionized (arterial) 1.01 mmol/L (1.12-1.30); Carboxyhemoglobin (COHb) 0.1 gm% (0.0-3.0); Hemoglobin (Hb) 9.3 g/dL (14.0-18.0); O2 Tension (PaO2), arterial 399.9 mmHg (> 70.0); Potassium - ABG Lab 5.09 mmol/L (3.70-5.30); pH, Arterial 7.35 (7.35-7.45)
[2022-06-22 15:04] LABS: Actual Bicarbonate (HCO3a) 25.1 mEq/L (22-28); Analyzer IN Cardio OR; Base Excess (BEa) -1.6 mEq/L (-2.0 to +3.0); Carboxyhemoglobin (COHb) 0.3 gm% (0.0-3.0); Hemoglobin (Hb) 11.4 g/dL (14.0-18.0); O2 Tension (PaO2), arterial 347.9 mmHg (> 70.0); Potassium - ABG Lab 4.65 mmol/L (3.70-5.30); pH, Arterial 7.31 (7.35-7.45)
[2022-06-22 15:04] LABS: Actual Bicarbonate (HCO3a) 25.5 mEq/L (22-28); Analyzer IN Cardio OR; Base Excess (BEa) -0.3 mEq/L (-2.0 to +3.0); CO2 Tension 47.4 mmHg (35.0-45.0); Calcium, Ionized (arterial) 1.12 mmol/L (1.12-1.30); Carboxyhemoglobin (COHb) 0.3 gm% (0.0-3.0); Hemoglobin (Hb) 8.7 g/dL (14.0-18.0); O2 Tension (PaO2), arterial 422.9 mmHg (> 70.0); Potassium - ABG Lab 4.72 mmol/L (3.70-5.30); pH, Arterial 7.35 (7.35-7.45)
[2022-06-22 15:05] LABS: Actual Bicarbonate (HCO3v) 25 mEq/L (22-28); Analyzer IN Cardio OR; Base Excess -2.2 mEq/L (-2.0 to +3.0); Calcium, Ionized (venous) 1.04 mmol/L (1.16-1.32); Chloride (VBG) 105 mmol/L (98-106); Hemoglobin (Hb) 9.6 g/dL (12.6-17.4); Potassium (VBG) 5.32 mmol/L (3.70-5.30); Sodium 131.6 mmol/L (133-146); pH (venous) 7.27 (7.32-7.43)
[2022-06-22 15:05] LABS: Actual Bicarbonate (HCO3a) 19.4 mEq/L (22-28); Analyzer IN Cardio OR; Base Excess (BEa) -6.3 mEq/L (-2.0 to +3.0); CO2 Tension 39.5 mmHg (35.0-45.0); Calcium, Ionized (arterial) 1.15 mmol/L (1.12-1.30); Carboxyhemoglobin (COHb) 0.6 gm% (0.0-3.0); Hemoglobin (Hb) 13.1 g/dL (14.0-18.0); O2 Tension (PaO2), arterial 435.3 mmHg (> 70.0); Potassium - ABG Lab 4.67 mmol/L (3.70-5.30); pH, Arterial 7.31 (7.35-7.45)
[2022-06-22 15:05] LABS: Actual Bicarbonate (HCO3a) 24.4 mEq/L (22-28); Analyzer IN Cardio OR; Base Excess (BEa) -0.4 mEq/L (-2.0 to +3.0); CO2 Tension 40.9 mmHg (35.0-45.0); Carboxyhemoglobin (COHb) 0.3 gm% (0.0-3.0); Hemoglobin (Hb) 9.9 g/dL (14.0-18.0); O2 Tension (PaO2), arterial 455.8 mmHg (> 70.0); Potassium - ABG Lab 5.24 mmol/L (3.70-5.30); pH, Arterial 7.39 (7.35-7.45)
[2022-06-22 15:06] LABS: Actual Bicarbonate (HCO3a) 19.8 mEq/L (22-28); Analyzer IN Cardio OR; Base Excess (BEa) -2.8 mEq/L (-2.0 to +3.0); CO2 Tension 28.5 mmHg (35.0-45.0); Calcium, Ionized (arterial) 1.14 mmol/L (1.12-1.30); Carboxyhemoglobin (COHb) 0.8 gm% (0.0-3.0); Hemoglobin (Hb) 13.7 g/dL (14.0-18.0); O2 Tension (PaO2), arterial 313.9 mmHg (> 70.0); Potassium - ABG Lab 4.04 mmol/L (3.70-5.30); Puncture Site Arterial Line; pH, Arterial 7.46 (7.35-7.45)
[2022-06-22 15:07] LABS: Puncture Site Arterial Line
[2022-06-22 15:07] LABS: Puncture Site Arterial Line
[2022-06-22 15:08] LABS: Puncture Site Arterial Line
[2022-06-22 15:08] LABS: Puncture Site Arterial Line
[2022-06-22 15:09] LABS: Puncture Site Arterial Line
[2022-06-22] MEDS: ALPRAZolam 0.25 MG TAB PO PRN (17:21)
[2022-06-22] MEDS: Ondansetron PF 4 MG/2 ML Vial IVP PRN (19:10)
[2022-06-22] MEDS: Atorvastatin Calcium 40 MG TAB PO SCH (19:17)
[2022-06-23] MEDS: Acetaminophen 325 MG TAB PO PRN (00:01)
[2022-06-23] MEDS: traMADol HCl 50 MG TAB PO PRN ×2 (00:01→21:39)
[2022-06-23 04:38] LABS: #Eosinphils 0.1 thou/uL (0.0-0.7); #Lymphocytes 1.1 thou/uL (1.20-3.40); #Monocytes 1.1 thou/uL (0.11-0.59); #Neutrophils 7.2 thou/uL (1.40-6.50); %Eosinophils 0.8 % (0.0-10.0); %Lymphocytes 11.7 % (21.0-51.0); %Monocytes 11.4 % (0.0-10.0); %Neutrophils 76.2 % (42.0-75.0); Hemoglobin 8.1 g/dL (14.0-18.0); Mean Corpuscular Hemoglobin 30.2 pg (27.0-31.0); Mean Platelet Volume 9.4 fL (7.4-10.4); Platelet Count 119 10x3/uL (130-400); RBC Distribution Width 14.5 % (11.5-14.5); Red Blood Cell (RBC) Count 2.67 mill/uL (4.70-6.10); White Blood Cell (WBC) Count 9.4 10x3/uL (4.8-10.8)
[2022-06-23 04:56] LABS: Anion Gap 10 mmol/L (10-20); BUN (Urea Nitrogen) 20 mg/dL (8.4-25.7); Calc. Creatinine Clearance 86 mL/min (70-130); Calcium 8.3 mg/dL (7.8-10.44); Carbon Dioxide 25 mmol/L (23-31); Chloride 105 mmol/L (98-107); Estimated GFR 88; Glucose 109 mg/dL (83-110); Potassium 4.4 mmol/L (3.5-5.1); Sodium 136 mmol/L (136-145)
[2022-06-23] MEDS: Ketorolac Tromethamine 30 MG/ML VIAL IVP SCH ×3 (05:30→17:05)
[2022-06-23] MEDS: Aspirin 325 MG TAB PO SCH (08:52)
[2022-06-23] MEDS: Magnesium 2 GM/50 ML(in water) 2 GM in Premix Bag 1 BAG IVPB SCH (08:53)
[2022-06-23] MEDS: ALPRAZolam 0.25 MG TAB PO PRN (14:12)
[2022-06-23] MEDS ORDERED: ALPRAZolam 0.5 MG TAB PO SCH (21:30)
[2022-06-23] MEDS: Atorvastatin Calcium 40 MG TAB PO SCH (21:40)
[2022-06-24] MEDS: Ketorolac Tromethamine 30 MG/ML VIAL IVP SCH ×3 (00:11→11:34)
[2022-06-24] MEDS: Aspirin 325 MG TAB PO SCH (08:15)
[2022-06-24] MEDS: Ipratropium Bromide 0.03% Nasal Inhaler 30 ml Bottle EA NARE SCH ×3 (14:49→21:22)
[2022-06-24] MEDS ORDERED: Ipratropium Bromide 0.06% Nasal Inhaler 15ml EA NARE SCH (15:00)
[2022-06-24] MEDS: ALPRAZolam 0.25 MG TAB PO PRN (16:13)
[2022-06-24] MEDS: Metoprolol Tartrate 25 MG TAB PO SCH (20:56)
[2022-06-24] MEDS: Atorvastatin Calcium 40 MG TAB PO SCH (20:57)
[2022-06-24] MEDS: Acetaminophen 325 MG TAB PO PRN (20:58)
[2022-06-25] MEDS: Ipratropium Bromide 0.03% Nasal Inhaler 30 ml Bottle EA NARE SCH (08:21)
[2022-06-25] MEDS: Aspirin 325 MG TAB PO SCH (08:22)
[2022-06-25] MEDS: ALPRAZolam 0.25 MG TAB PO PRN (08:22)
[2022-06-25] MEDS: Metoprolol Tartrate 25 MG TAB PO SCH (08:22)
[2022-06-25] MEDS: Acetaminophen 325 MG TAB PO PRN (08:23)
[2022-06-25 09:48] VITALS: BP 126/70; TEMP 99.2
== END 2022-06-25 11:20 | disposition home or self-care (01) | DRG 236 ==
LOC: SURG A 06-21 05:40 → CCU 06-21 10:35 → 2NO 06-23 19:20
PROVIDERS: ADMIT Thoracic Surgery (Cardiothoracic Vascular Surgery); ATTEND Thoracic Surgery (Cardiothoracic Vascular Surgery)
PROC: 02100Z9 Bypass Coronary Artery, One Artery from Left Internal Mammary, Open Approach (ICD-10-PCS; principal; 2022-06-21)
PROC: 021209W Bypass Coronary Artery, Three Arteries from Aorta with Autologous Venous Tissue, Open Approach (ICD-10-PCS; 2022-06-21)
PROC: 06BQ4ZZ Excision of Left Saphenous Vein, Percutaneous Endoscopic Approach (ICD-10-PCS; 2022-06-21)
PROC: 5A1221Z Performance of Cardiac Output, Continuous (ICD-10-PCS; 2022-06-21)
PROC: 02L70CK Occlusion of Left Atrial Appendage with Extraluminal Device, Open Approach (ICD-10-PCS; 2022-06-21)
PROC: 3E033XZ Introduction of Vasopressor into Peripheral Vein, Percutaneous Approach (ICD-10-PCS; 2022-06-21)
PROC: 30233N1 Transfusion of Nonautologous Red Blood Cells into Peripheral Vein, Percutaneous Approach (ICD-10-PCS; 2022-06-21)
DX: I25.10 Atherosclerotic heart disease of native coronary artery without angina pectoris (principal); I10 Essential (primary) hypertension; K21.9 Gastro-esophageal reflux disease without esophagitis; Z96.641 Presence of right artificial hip joint; F41.9 Anxiety disorder, unspecified; E78.2 Mixed hyperlipidemia; Z98.890 Other specified postprocedural states; Z82.49 Family history of ischemic heart disease and other diseases of the circulatory system; Z87.891 Personal history of nicotine dependence; Z78.1 Physical restraint status; Z79.899 Other long term (current) drug therapy; Z79.82 Long term (current) use of aspirin; I25.2 Old myocardial infarction; Z95.5 Presence of coronary angioplasty implant and graft; Z90.79 Acquired absence of other genital organ(s); Z88.2 Allergy status to sulfonamides
CPT/HCPCS: 36416; 71045; 80048; 82805; 85025; 85027; 85610; 85730; 86850; 86900; 86901; 93005; 93010; 93798; 94002; C1751; C1776; J0360; J0694; J1100; J1642; J1644; J1815; J1885; J2001; J2150; J2250; J2272; J2405; J2440; J2704; J2720; J3010; J3370; J3475; J3480; J3490; J7050; J7120; P9045; P9047; S0017; S0028

== ENCOUNTER 2022-06-20 09:11 | Outpatient (CLI) | payer MEDICARE | END 2022-06-20 09:12 | disposition home or self-care (01) | LOC: LABBT 09:11 | PROVIDERS: ATTEND Thoracic Surgery (Cardiothoracic Vascular Surgery) | DX: Z01.818 Encounter for other preprocedural examination (principal); I25.10 Atherosclerotic heart disease of native coronary artery without angina pectoris | CPT/HCPCS: 93005; 93010 ==

== ENCOUNTER 2022-10-27 09:33 | Outpatient (CLI) | payer MEDICARE | END 2022-10-27 09:34 | disposition home or self-care (01) | LOC: RAD 09:33 | PROVIDERS: ATTEND Internal Medicine | DX: R06.09 Other forms of dyspnea (principal) | CPT/HCPCS: 71046 ==

== ENCOUNTER 2022-11-09 17:30 | Outpatient (CLI) | payer MEDICARE | END 2022-11-09 17:31 | disposition home or self-care (01) | LOC: SLEEPLAB 17:30 | PROVIDERS: ATTEND Internal Medicine | DX: G47.33 Obstructive sleep apnea (adult) (pediatric) (principal); R06.09 Other forms of dyspnea; G47.10 Hypersomnia, unspecified; K21.9 Gastro-esophageal reflux disease without esophagitis; I25.10 Atherosclerotic heart disease of native coronary artery without angina pectoris; G47.00 Insomnia, unspecified; R06.83 Snoring | CPT/HCPCS: 95800 ==

== ENCOUNTER 2023-10-24 09:26 | Outpatient (CLI) | payer MEDICARE | END 2023-10-24 09:27 | disposition home or self-care (01) | LOC: RAD 09:26 | PROVIDERS: ATTEND Internal Medicine | DX: J44.9 Chronic obstructive pulmonary disease, unspecified (principal) | CPT/HCPCS: 71046 ==